=== PATIENT | female | born 1965 | race Caucasian/White ===

== ENCOUNTER → 2020-05-29 | Outpatient (CLI) | payer BC ==
--- NOTE | 2020-05-29 09:52 | Diagnostic Imaging Report ---
INDICATION: Low back pain. TIME OF EXAM: 9:20 AM No prior studies are available for comparison. FINDINGS: Curvature and alignment of the lumbar spine is normal. Vertebral body heights are maintained. There is degenerative disc disease L5-S1 with disc space narrowing and marginal osteophyte formation. Lower lumbar facet arthropathy is also noted. There are calcific densities overlying the renal shadows bilaterally suggestive of renal calculi. IMPRESSION: 1. Lower lumbar spondylosis. No acute bony abnormality is detected. 2. Findings suggestive of bilateral nephrolithiasis. Dictated by: Dictated on workstation # [id number]
== END ==
LOC: RAD 09:01
PROVIDERS: ATTEND Family Medicine
DX: M47.816 Spondylosis without myelopathy or radiculopathy, lumbar region (principal)
CPT/HCPCS: 72100

== ENCOUNTER → 2020-05-31 | Outpatient (CLI) | payer BC ==
[2020-05-31 13:32] VITALS: BP 150/87
--- NOTE | 2020-05-31 13:32 | Cardiology Stress Test Report ---
Stress Test Report Date of Procedure/Referring: Date of Procedure: May 31, 2020 PCP Tammy Ruiz DO Admitting Physician Tammy Ruiz DO Indications: Chest pain Baseline Heart Rate: 94 Baseline Blood Pressure: Blood Pressure Systolic: 150 Blood Pressure Diastolic: 87 Baseline EKG: Baseline EKG: NSR Summary/Conclusion: Summary: In summary, the patient started exercising with a baseline heart rate, blood pressure and EKG mentioned above Patient was able to exercise for a total of 7minutes on Ken protocol, METs 8.5 Maximum heart rate 149 Maximum blood pressure 177/68 Stress EKG, Minimal nondiagnostic changes Recovery EKG , Return to baseline Conclusion: 1. Good exercise tolerance for a total of 7 minutes on Ken protocol, 8.5 METs, achieving 90 percent of maximum expected heart rate 2. Minimal nondiagnostic EKG changes with exercise returned to baseline during recovery 3. No arrhythmia was noted ERNESTINA BARNES MD May 31, 2020 13:32
== END ==
LOC: CARD 10:05
PROVIDERS: ATTEND Family Medicine
DX: R07.9 Chest pain, unspecified (principal)
CPT/HCPCS: 93017

== ENCOUNTER → 2020-06-01 | Outpatient (CLI) | payer BC | LOC: CARD 14:00 | PROVIDERS: ATTEND Family Medicine | DX: R07.9 Chest pain, unspecified (principal) | CPT/HCPCS: 93306 ==

== ENCOUNTER → 2021-06-13 | Outpatient (CLI) | payer BC ==
--- NOTE | 2021-06-13 18:00 | Diagnostic Imaging Report ---
Indication: Swelling. Findings: 3 view left foot showed no fracture, dislocation, abnormal soft tissue calcification, erosion, periosteal reaction or acute abnormalities. impression: Unremarkable 3 view left foot. Dictated by: Dictated on workstation # [id number]
== END ==
LOC: RAD 16:56
PROVIDERS: ATTEND Family Medicine
DX: M79.89 Other specified soft tissue disorders (principal); M79.672 Pain in left foot
CPT/HCPCS: 73630